=== PATIENT | female | born 2000 | race Asian ===

== ENCOUNTER 2020-06-30 17:11 | Emergency (ER) | payer OTHER ==
[~2020-06-30] VITALS: Ht 157.5 cm; Wt 42.0 kg
[2020-06-30] MEDS ORDERED: SODIUM CHLORIDE 0.9% 1,000ML IVBOLUS ONE ×2 (18:00→19:30)
[2020-06-30] MEDS ORDERED: ONDANSETRON 2MG/ML, 2ML IVPush ONE (18:00)
[2020-06-30] MEDS ORDERED: SODIUM CHLORIDE FLUSH 10ML SYR IVF ONE (18:00)
[2020-06-30] MEDS ORDERED: PLEASE ENTER ALLERGIES MC SCH (18:00)
[2020-06-30] MEDS ORDERED: FAMOTIDINE 20 MG/2 ML IVPush ONE (18:00)
[2020-06-30] MEDS ORDERED: FAMOTIDINE 20 MG/2 ML ONE (18:13)
[2020-06-30] MEDS ORDERED: ONDANSETRON 2MG/ML, 2ML ONE (18:17)
[2020-06-30 18:26] LABS: BASOPHILS % (AUTO) 0 % (0-1); EOSINOPHILS % (AUTO) 1 % (1-7); LYMPHOCYTES % (AUTO) 18 % (22-44); MEAN CORPUSCULAR HEMOGLOBIN 29.9 pg (27.0-34.8); MEAN CORPUSCULAR HGB CONC 34.2 g/dL (32.4-35.8); MEAN PLATELET VOLUME 7.7 fL (7.4-10.4); MONOCYTES % (AUTO) 6 % (2-9); NEUTROPHILS % (AUTO) 74 % (42-75); PLATELET COUNT 239 x10^3/uL (130-400); RED BLOOD COUNT 3.15 x10^6/uL (3.82-5.3); RED CELL DISTRIBUTION WIDTH 14.5 % (9.6-15.2)
[2020-06-30 18:28] LABS: ALANINE AMINOTRANSFERASE 15 U/L (12-78); ALBUMIN 2.8 g/dL (3.4-5.0); ANION GAP 5 mmol/L (5-15); CALCIUM 8.5 mg/dL (8.5-10.1); CHLORIDE 108 mmol/L (98-107)
[2020-06-30 18:31] LABS: ALKALINE PHOSPHATASE 48 U/L (45-117); BILIRUBIN,TOTAL 0.4 mg/dL (0.2-1.0); CREATININE 0.43 mg/dL (0.55-1.02); TOTAL PROTEIN 6.5 g/dL (6.4-8.2)
--- NOTE | 2020-06-30 19:07 | NUR ---
pt in bed with residential monitor in place, ivf infusing at r ac and bed rails up bilaterally. call light within reach, pt satting well on room air. pt states she feels better since admin of iv pepcid and zofran, no emesis noted since arrival in unit. rn in room to assess fht, fht 152, strong and regular. pt denies need or discomfort at this time, states she doesnt yet feel the urge to void.
[2020-06-30] MEDS ORDERED: ACETAMINOPHEN 325 MG TABLET PO ONE (20:30)
[2020-06-30] MEDS ORDERED: ACETAMINOPHEN 325 MG TABLET ONE (20:55)
--- NOTE | 2020-06-30 21:03 | NUR ---
pt able to ambulate to bathroom with significant other as stand by assist, able to obtain urine for lab. pt returned safely to bed denies dizziness pain or sob with walking, placed back on cardiac/vascular sonographer. pt able to take po tylenol and sip water without pain or nausea. pt in bed with significant other at bedside, call light within reach, and bed rails up bilaterally.
[2020-06-30 21:18] LABS: MICROSCOPIC INDICATED
--- NOTE | 2020-06-30 21:31 | NUR ---
pt noted to have vomited a small amount of water, no pill fragments noted in output. pt sitting up in bed with dermatology physician in place and bed rails up bilaterally, call light within reach. no signs or symptoms of acute dsitress noted respirations even and unlabored
--- NOTE | 2020-06-30 22:30 | NUR ---
pt still nauseated, clear output noted when vomiting. pt denies pain.
[2020-06-30] MEDS ORDERED: METOCLOPRAMIDE 5 MG/ML, 2ML ONE (22:33)
[2020-06-30] MEDS ORDERED: METOCLOPRAMIDE 5 MG/ML, 2ML IVPush ONE (23:00)
[2020-06-30 23:31] VITALS: BP 96/42
== END 2020-06-30 23:33 | disposition home or self-care (01) ==
LOC: ED 22:13
DX: O21.0 Mild hyperemesis gravidarum (principal); Z3A.18 18 weeks gestation of pregnancy
CPT/HCPCS: 36415; 80053; 81001; 85025; 87086; 96361; 96374; 96375; 99285; J2405; J2765; J7030

== ENCOUNTER 2020-07-07 17:31 | Inpatient (IN) | payer OTHER ==
[~2020-07-07] VITALS: Ht 157.5 cm; Wt 44.8 kg
[2020-07-07] MEDS ORDERED: SODIUM CHLORIDE 0.9% 1,000ML IVBOLUS ONE (18:00)
[2020-07-07] MEDS ORDERED: SODIUM CHLORIDE FLUSH 10ML SYR IVF ONE (18:00)
[2020-07-07] MEDS ORDERED: ONDANSETRON 2MG/ML, 2ML IVPush ONE ×2 (18:00→20:30)
[2020-07-07 18:12] LABS: BASOPHILS % (AUTO) 0 % (0-1); EOSINOPHILS % (AUTO) 1 % (1-7); LYMPHOCYTES % (AUTO) 21 % (22-44); MEAN CORPUSCULAR HEMOGLOBIN 29.2 pg (27.0-34.8); MEAN CORPUSCULAR HGB CONC 33.4 g/dL (32.4-35.8); MEAN PLATELET VOLUME 7.5 fL (7.4-10.4); MONOCYTES % (AUTO) 7 % (2-9); NEUTROPHILS % (AUTO) 71 % (42-75); PLATELET COUNT 262 x10^3/uL (130-400); RED BLOOD COUNT 3.38 x10^6/uL (3.82-5.3); RED CELL DISTRIBUTION WIDTH 13.9 % (9.6-15.2)
[2020-07-07] MEDS ORDERED: ONDANSETRON 2MG/ML, 2ML ONE ×2 (18:16→20:38)
[2020-07-07 18:20] LABS: ANION GAP 8 mmol/L (5-15); CALCIUM 8.8 mg/dL (8.5-10.1); CHLORIDE 105 mmol/L (98-107); CREATININE 0.47 mg/dL (0.55-1.02)
--- NOTE | 2020-07-07 18:30 | NUR ---
FHT DONE BY L&D RN = 150 BPM. PT MEDICATED PER ORDERS, IV BOLUS INFUSING. WARM BLANKETS PROVIDED. SIGNIFICANT OTHER AT BS.
[2020-07-07 18:51] LABS: MD SCAN
--- NOTE | 2020-07-07 19:15 | NUR ---
PT C/O "GREENISH" VAGINAL DISCHARGE. ER PA NOTIFIED.
[2020-07-07 19:18] LABS: MICROSCOPIC INDICATED
--- NOTE | 2020-07-07 19:30 | NUR ---
ERP AT TO DO PELVIC EXAM. Addendum: 07/07/20 at 1942 by BETO BRAYAN ZAVALA AT TO DO PELVIC EXAM.
[2020-07-07 20:04] LABS: CLUE CELLS NONE SEEN (NONE SEEN); WET PREP WBCS MANY (FEW)
[2020-07-07] MEDS ORDERED: CEFTRIAXONE 1,000 MG IM ONE (20:30)
[2020-07-07] MEDS ORDERED: CEFTRIAXONE 1,000 MG in DEXTROSE 5% 50 ML IVPB ONE (20:30)
--- NOTE | 2020-07-07 20:53 | NUR ---
PT TRIED A LITTLE JUICE, WATER, CRACKERS, BUT THEN STATED SHE FELT NAUSEOUS. ERP AWARE. MEDICATED WITH ZOFRAN AGAIN. LITER OF D5NS INFUSING. PT UNDERSTANDS POC.
[2020-07-07] MEDS ORDERED: D5%-0.9% NACL 1,000 ML IV SCH (21:00)
[2020-07-07] MEDS ORDERED: D5%-0.9% NACL 1,000 ML IV ONE (21:00)
--- NOTE | 2020-07-07 21:02 | NUR ---
REPORTED TO BRUNO ALCANTAR.
--- NOTE | 2020-07-07 21:06 | NUR ---
report from jim caceres
--- NOTE | 2020-07-07 21:16 | NUR ---
With assessment no abd pain. But still nauseated at 9/10 Erp made aware-to consider admit To re-check fsbs shortly
--- NOTE | 2020-07-07 21:33 | NUR ---
FSBS 204 (d5ns liter running). Erp to bedside to discuss admission
[2020-07-07] MEDS ORDERED: ONDANSETRON ODT 4 MG PO PRN (22:00)
[2020-07-07] MEDS ORDERED: SODIUM CHLORIDE 0.9% 1,000 ML IV SCH (22:00)
[2020-07-07] MEDS ORDERED: AZITHROMYCIN 500 MG TABLET PO ONE (22:00)
[2020-07-07] MEDS ORDERED: PROCHLORPERAZINE 5 MG/ML, 2ML IVPush ONE (22:00)
[2020-07-07] MEDS ORDERED: AZITHROMYCIN 500 MG TABLET ONE (22:42)
--- NOTE | 2020-07-07 22:42 | NUR ---
Dr. Sal called (voicemail left) in r/t to need for keflex admin
[2020-07-07] MEDS ORDERED: PROCHLORPERAZINE 5 MG/ML, 2ML ONE (22:50)
--- NOTE | 2020-07-07 22:52 | NUR ---
patient transported to inpatient bed before consumer loan underwriter able to admin rocco hernandez (inpatient rn called) [facility] hospitalist called back. he would like keflex to start tmrw for uti tx
[2020-07-07 23:08] VITALS: BP 93/56
[2020-07-08 02:32] VITALS: BP 92/59
[2020-07-08] MEDS ORDERED: SODIUM CHLORIDE 0.9% 1,000 ML IV SCH (03:30)
[2020-07-08 05:21] LABS: BASOPHILS % (AUTO) 0 % (0-1); EOSINOPHILS % (AUTO) 2 % (1-7); LYMPHOCYTES % (AUTO) 30 % (22-44); MEAN CORPUSCULAR HEMOGLOBIN 29.6 pg (27.0-34.8); MEAN CORPUSCULAR HGB CONC 33.2 g/dL (32.4-35.8); MEAN PLATELET VOLUME 7.6 fL (7.4-10.4); MONOCYTES % (AUTO) 7 % (2-9); NEUTROPHILS % (AUTO) 61 % (42-75); PLATELET COUNT 222 x10^3/uL (130-400); RED BLOOD COUNT 2.76 x10^6/uL (3.82-5.3); RED CELL DISTRIBUTION WIDTH 13.6 % (9.6-15.2)
[2020-07-08 05:25] LABS: MD NO
[2020-07-08 05:30] LABS: ALBUMIN 2.4 g/dL (3.4-5.0); ANION GAP 5 mmol/L (5-15); CHLORIDE 110 mmol/L (98-107)
[2020-07-08 05:37] LABS: ALANINE AMINOTRANSFERASE 15 U/L (12-78); ALKALINE PHOSPHATASE 41 U/L (45-117); BILIRUBIN,TOTAL 0.4 mg/dL (0.2-1.0); CREATININE 0.38 mg/dL (0.55-1.02); TOTAL PROTEIN 5.9 g/dL (6.4-8.2)
[2020-07-08] MEDS: FERROUS SULFATE 325 MG TABLET PO SCH (07:27)
[2020-07-08] MEDS ORDERED: SCOPOLAMINE 1MG PATCH TD SCH (08:30)
[2020-07-08] MEDS ORDERED: PROMETHAZINE 12.5 MG SUPP PR PRN (08:30)
[2020-07-08 08:57] VITALS: BP 99/62
[2020-07-08] MEDS: ONDANSETRON 2MG/ML, 2ML IVPush PRN ×4 (09:30→21:30)
[2020-07-08] MEDS: CEPHALEXIN 250 MG CAPSULE PO SCH ×2 (09:31→22:09)
[2020-07-08] MEDS: DOXYLAMINE 25MG TABLET PO SCH ×3 (11:00→23:08)
[2020-07-08] MEDS: SUCRALFATE 1 GM TABLET PO SCH ×3 (11:06→21:30)
[2020-07-08] MEDS: PYRIDOXINE (VITAMIN B6) 100 MG TAB PO SCH (11:06)
[2020-07-08 15:33] VITALS: BP 95/58
[2020-07-08] MEDS ORDERED: ACETAMINOPHEN 325 MG TABLET PO PRN (16:30)
[2020-07-08 18:41] VITALS: BP 85/53
[2020-07-08 19:56] VITALS: BP 91/55
[2020-07-08] MEDS ORDERED: D5%-0.9% NACL 1,000 ML IV SCH (21:00)
[2020-07-09 00:24] VITALS: BP 91/55
[2020-07-09] MEDS: ONDANSETRON 2MG/ML, 2ML IVPush PRN ×2 (02:21→06:25)
[2020-07-09] MEDS ORDERED: SODIUM CHLORIDE 0.9% 1,000 ML IV SCH (03:30)
[2020-07-09] MEDS: DOXYLAMINE 25MG TABLET PO SCH (05:13)
[2020-07-09 07:14] VITALS: BP 92/60
[2020-07-09] MEDS: FERROUS SULFATE 325 MG TABLET PO SCH (07:44)
[2020-07-09] MEDS: SUCRALFATE 1 GM TABLET PO SCH (07:44)
[2020-07-09 08:04] LABS: ANION GAP 5 mmol/L (5-15); CALCIUM 8.1 mg/dL (8.5-10.1); CHLORIDE 111 mmol/L (98-107); CREATININE 0.46 mg/dL (0.55-1.02)
[2020-07-09] MEDS ORDERED: PYRI100T9 PO (09:11)
[2020-07-09] MEDS ORDERED: CEPH-375 PO (09:11)
[2020-07-09] MEDS ORDERED: DOXY25TA45 PO (09:11)
[2020-07-09] MEDS ORDERED: FERR-36 PO (09:11)
[2020-07-09] MEDS ORDERED: SUCR1TAB33 PO (09:11)
[2020-07-09] MEDS: CEPHALEXIN 250 MG CAPSULE PO SCH (09:24)
[2020-07-09] MEDS: PYRIDOXINE (VITAMIN B6) 100 MG TAB PO SCH (09:24)
== END 2020-07-09 10:33 | disposition home or self-care (01) | DRG 832 ==
LOC: ED 18:13 → INTOOBSV 22:28 → EDIP 22:28 → 3N 22:52 → OBSVTOIN 07-08 10:06 → DCLOUNGE 07-09 10:25
PROVIDERS: ATTEND Hospitalist
DX: O21.0 Mild hyperemesis gravidarum (principal); O23.12 Infections of bladder in pregnancy, second trimester; O23.592 Infection of other part of genital tract in pregnancy, second trimester; O23.512 Infections of cervix in pregnancy, second trimester; E86.0 Dehydration; E16.2 Hypoglycemia, unspecified; D64.9 Anemia, unspecified; O36.8120 Decreased fetal movements, second trimester, not applicable or unspecified; O99.012 Anemia complicating pregnancy, second trimester; O99.282 Endocrine, nutritional and metabolic diseases complicating pregnancy, second trimester; Z3A.19 19 weeks gestation of pregnancy
CPT/HCPCS: 36415; 80048; 80053; 81001; 82962; 85025; 87086; 87210; 87491; 87591; 87808; 96361; 96365; 96375; 99285; G0378; J0696; J2405; J7042; J7030

== ENCOUNTER 2020-09-29 09:51 | Observation (INO) | payer OTHER ==
[~2020-09-29] VITALS: Ht 157.5 cm; Wt 46.4 kg
[~2020-09-29 09:51] MED LIST: CEPH-375 PO; DOXY25TA45 PO; FERR-36 PO; PYRI100T9 PO; SUCR1TAB33 PO
[2020-09-29 10:40] VITALS: BP 104/56
[2020-09-29 11:04] LABS: MICROSCOPIC INDICATED
[2020-09-29 11:05] LABS: BASOPHILS % (AUTO) 0 % (0-1); EOSINOPHILS % (AUTO) 1 % (1-7); LYMPHOCYTES % (AUTO) 17 % (22-44); MEAN CORPUSCULAR HGB CONC 33.3 g/dL (32.4-35.8); MEAN PLATELET VOLUME 7.9 fL (7.4-10.4); MONOCYTES % (AUTO) 7 % (2-9); NEUTROPHILS % (AUTO) 74 % (42-75); PLATELET COUNT 208 x10^3/uL (130-400); RED BLOOD COUNT 3.55 x10^6/uL (3.82-5.3); RED CELL DISTRIBUTION WIDTH 18.1 % (9.6-15.2)
[2020-09-29 11:12] LABS: ALANINE AMINOTRANSFERASE 17 U/L (12-78); ALBUMIN 2.5 g/dL (3.4-5.0); ANION GAP 4 mmol/L (5-15); CALCIUM 8.5 mg/dL (8.5-10.1); CHLORIDE 105 mmol/L (98-107)
[2020-09-29 11:14] LABS: ALKALINE PHOSPHATASE 85 U/L (45-117); BILIRUBIN,TOTAL 0.3 mg/dL (0.2-1.0); CREATININE 0.43 mg/dL (0.55-1.02); TOTAL PROTEIN 6.9 g/dL (6.4-8.2)
[2020-09-29] MEDS ORDERED: ONDANSETRON ODT 4 MG ONE (14:26)
[2020-09-29] MEDS ORDERED: ONDANSETRON ODT 4 MG PO ONE (14:30)
== END 2020-09-29 15:33 | disposition home or self-care (01) ==
LOC: LDOP 09:51 → LDIP 12:09
PROVIDERS: ADMIT Student in an Organized Health Care Education/Training Program; ATTEND Student in an Organized Health Care Education/Training Program
DX: O26.893 Other specified pregnancy related conditions, third trimester (principal); R10.32 Left lower quadrant pain; O99.613 Diseases of the digestive system complicating pregnancy, third trimester; K92.0 Hematemesis; Z3A.31 31 weeks gestation of pregnancy
CPT/HCPCS: 36415; 76700; 80053; 81001; 83690; 85025; 87086; G0378; Q0162

== ENCOUNTER 2020-11-16 06:11 | Outpatient (CLI) | payer OTHER ==
[~2020-11-16] VITALS: Ht 157.5 cm; Wt 108.0 kg
[2020-11-16] MEDS ORDERED: PREN-59 PO (08:54)
== END 2020-11-16 09:14 | disposition home or self-care (01) ==
LOC: LDOP 06:11
PROVIDERS: ATTEND Student in an Organized Health Care Education/Training Program
DX: O62.9 Abnormality of forces of labor, unspecified (principal); Z3A.38 38 weeks gestation of pregnancy
CPT/HCPCS: 59025

== ENCOUNTER 2020-11-19 06:18 | Inpatient (IN) | payer OTHER ==
[~2020-11-19] VITALS: Ht 157.5 cm; Wt 50.0 kg
[~2020-11-19 06:18] MED LIST changes: +PREN-59 PO
[2020-11-19] MEDS ORDERED: MISOPROSTOL 25 MCG TABLET VG PRN (06:30)
[2020-11-19] MEDS ORDERED: FENTANYL PF 100 MCG/2ML IV PRN (06:30)
[2020-11-19] MEDS ORDERED: FENTANYL PF 100 MCG/2ML IVPush PRN (06:30)
[2020-11-19] MEDS ORDERED: CALCIUM CARBONATE 500 MG TAB.CHEW PO PRN (06:30)
[2020-11-19] MEDS ORDERED: SODIUM CITRATE/CITRIC ACID 30 ML UDC PO PRN (06:30)
[2020-11-19] MEDS ORDERED: TERBUTALINE 1 MG/ML, 1ML IVPush PRN (06:30)
[2020-11-19] MEDS ORDERED: TERBUTALINE 1 MG/ML, 1ML SQ PRN (06:30)
[2020-11-19] MEDS ORDERED: OXYTOCIN 30U/ 0.9% NaCL 500ML 500 ML IV ONE (06:30)
[2020-11-19] MEDS ORDERED: ONDANSETRON 2MG/ML, 2ML IVPush PRN (06:30)
[2020-11-19] MEDS ORDERED: D5%-LACTATED RINGERS 1,000 ML IV SCH (06:30)
[2020-11-19] MEDS ORDERED: METOCLOPRAMIDE 5 MG/ML, 2ML IVPush PRN (06:30)
[2020-11-19] MEDS ORDERED: OXYTOCIN 30U/ 0.9% NaCL 500ML 500 ML IV PRN (06:30)
[2020-11-19] MEDS: LACTATED RINGERS 1,000 ML IV SCH ×2 (06:35→17:30)
[2020-11-19] MEDS ORDERED: NEWBORN KIT ONE (06:48)
[2020-11-19 07:00] LABS: BASOPHILS % (AUTO) 1 % (0-1); EOSINOPHILS % (AUTO) 1 % (1-7); LYMPHOCYTES % (AUTO) 23 % (22-44); MEAN CORPUSCULAR HEMOGLOBIN 31.9 pg (27.0-34.8); MEAN CORPUSCULAR HGB CONC 33.9 g/dL (32.4-35.8); MEAN PLATELET VOLUME 7.9 fL (7.4-10.4); MONOCYTES % (AUTO) 7 % (2-9); NEUTROPHILS % (AUTO) 68 % (42-75); PLATELET COUNT 187 x10^3/uL (130-400); RED BLOOD COUNT 3.81 x10^6/uL (3.82-5.3); RED CELL DISTRIBUTION WIDTH 17.5 % (9.6-15.2)
[2020-11-19] MEDS ORDERED: ACYC-40 PO (07:58)
[2020-11-19] MEDS ORDERED: LACTATED RINGERS 1,000 ML IVBOLUS PRN (14:30)
[2020-11-19] MEDS ORDERED: EPHEDRINE 50 MG/ML, 1ML IVPush PRN (14:30)
[2020-11-19] MEDS ORDERED: LACTATED RINGERS 1,000 ML IV SCH (14:30)
[2020-11-19] MEDS ORDERED: FENTANYL/BUPIV./NS/PF 250 ML EPIDCONT SCH (14:30)
[2020-11-19] MEDS ORDERED: NALOXONE 0.4 MG/ML, 1ML IVPush PRN (14:30)
[2020-11-19] MEDS ORDERED: BUPIVACAINE 0.25% ONE (17:43)
[2020-11-20] MEDS ORDERED: OXYTOCIN 30U/ 0.9% NaCL 500ML 500 ML ONE (01:37)
[2020-11-20] MEDS ORDERED: MISOPROSTOL 200 MCG TABLET PO PRN (02:00)
[2020-11-20] MEDS ORDERED: METOCLOPRAMIDE 5 MG/ML, 2ML IV PRN (02:00)
[2020-11-20] MEDS ORDERED: OXYcodone/APAP 5/325MG TABLET PO PRN ×2 (02:00)
[2020-11-20] MEDS ORDERED: ACETAMINOPHEN 325 MG TABLET PO PRN ×2 (02:00)
[2020-11-20] MEDS ORDERED: ONDANSETRON 2MG/ML, 2ML IV PRN (02:00)
[2020-11-20] MEDS ORDERED: SIMETHICONE 80 MG CHEW TAB PO PRN (02:00)
[2020-11-20] MEDS: OXYTOCIN 30U/ 0.9% NaCL 500ML 500 ML IV SCH ×2 (02:00→07:19)
[2020-11-20] MEDS ORDERED: METHYLERGONOVINE 0.2 MG/ML IM PRN (02:00)
[2020-11-20] MEDS ORDERED: IBUPROFEN 800 MG TABLET PO PRN (02:00)
[2020-11-20] MEDS ORDERED: MISOPROSTOL 200 MCG TABLET SL PRN ×2 (02:00)
[2020-11-20] MEDS ORDERED: MISOPROSTOL 200 MCG TABLET PR PRN (02:00)
[2020-11-20 02:25] VITALS: BP 91/54
[2020-11-20 04:35] VITALS: BP 109/71
[2020-11-20 09:15] VITALS: BP 97/67
[2020-11-20 10:50] LABS: BASOPHILS % (AUTO) 0 % (0-1); EOSINOPHILS % (AUTO) 1 % (1-7); LYMPHOCYTES % (AUTO) 12 % (22-44); MEAN CORPUSCULAR HGB CONC 33.6 g/dL (32.4-35.8); MEAN PLATELET VOLUME 8.5 fL (7.4-10.4); MONOCYTES % (AUTO) 8 % (2-9); NEUTROPHILS % (AUTO) 80 % (42-75); PLATELET COUNT 142 x10^3/uL (130-400); RED BLOOD COUNT 3.26 x10^6/uL (3.82-5.3); RED CELL DISTRIBUTION WIDTH 17.5 % (9.6-15.2)
[2020-11-20] MEDS: PRENATAL VIT/IRON/FA 1 EACH TABLET PO SCH (10:54)
[2020-11-20] MEDS: DOCUSATE 100 MG CAPSULE PO PRN ×2 (10:54→20:42)
[2020-11-20] MEDS: IBUPROFEN 600 MG TABLET PO PRN (15:41)
[2020-11-20 16:00] VITALS: BP 96/61
[2020-11-20 18:23] VITALS: BP 94/62
[2020-11-21] MEDS: IBUPROFEN 600 MG TABLET PO PRN (00:16)
[2020-11-21 09:50] VITALS: BP 105/71
[2020-11-21] MEDS: DOCUSATE 100 MG CAPSULE PO PRN (10:51)
[2020-11-21] MEDS: PRENATAL VIT/IRON/FA 1 EACH TABLET PO SCH (10:51)
[2020-11-21] MEDS ORDERED: IBUP-1222 PO (13:55)
== END 2020-11-21 17:00 | disposition home or self-care (01) | DRG 806 ==
LOC: LDIP 06:18 → 2NW 11-20 02:20
PROVIDERS: ADMIT Student in an Organized Health Care Education/Training Program; ATTEND Student in an Organized Health Care Education/Training Program
PROC: 3E0DXGC Introduction of Other Therapeutic Substance into Mouth and Pharynx, External Approach (ICD-10-PCS; 2020-11-19)
PROC: 10907ZC Drainage of Amniotic Fluid, Therapeutic from Products of Conception, Via Natural or Artificial Opening (ICD-10-PCS; 2020-11-19)
PROC: 3E0R3BZ Introduction of Anesthetic Agent into Spinal Canal, Percutaneous Approach (ICD-10-PCS; 2020-11-19)
PROC: 00HU33Z Insertion of Infusion Device into Spinal Canal, Percutaneous Approach (ICD-10-PCS; 2020-11-19)
PROC: 10H07YZ Insertion of Other Device into Products of Conception, Via Natural or Artificial Opening (ICD-10-PCS; 2020-11-19)
PROC: 10E0XZZ Delivery of Products of Conception, External Approach (ICD-10-PCS; principal; 2020-11-20)
PROC: 0KQM0ZZ Repair Perineum Muscle, Open Approach (ICD-10-PCS; 2020-11-20)
DX: O99.02 Anemia complicating childbirth (principal); D62 Acute posthemorrhagic anemia; Z37.0 Single live birth; O70.1 Second degree perineal laceration during delivery; E55.9 Vitamin D deficiency, unspecified; F41.9 Anxiety disorder, unspecified; J45.909 Unspecified asthma, uncomplicated; O99.344 Other mental disorders complicating childbirth; O99.52 Diseases of the respiratory system complicating childbirth; O99.284 Endocrine, nutritional and metabolic diseases complicating childbirth; Z3A.39 39 weeks gestation of pregnancy; Z80.3 Family history of malignant neoplasm of breast; Z82.3 Family history of stroke; Z82.49 Family history of ischemic heart disease and other diseases of the circulatory system; Z83.3 Family history of diabetes mellitus; Z86.19 Personal history of other infectious and parasitic diseases; Z20.822 Contact with and (suspected) exposure to COVID-19
CPT/HCPCS: 36415; J7121; 85025; 86592; 86850; 86900; 87635; G0378; J2590; J7120